=== PATIENT | male | born 1960 | race Two or more races ===

== ENCOUNTER 2024-09-13 08:33 | Outpatient (CLI) | payer BC ==
[2024-09-13 08:54] LABS: Hemoglobin 17.8 g/dL (13.5-17.5)
[2024-09-13 08:56] LABS: Hematocrit 50.8 % (41.0-53.0); Mean Corpuscular Hemoglobin 30.3 pg (28.0-32.0); Mean Corpuscular Volume 86.8 fL (80.0-100.0); Nucleated Red Blood Cells % 0.1 %
[2024-09-13 09:27] LABS: Alanine Aminotransferase 30 U/L (7-40); Albumin 4.4 g/dL (3.2-4.8); Alkaline Phosphatase 51 U/L (46-116); Anion Gap 8 (5-15); BUN/Creatinine Ratio 13.8 (10.0-20.0); Blood Urea Nitrogen 16 mg/dL (9-23); Calcium 9.6 mg/dL (8.7-10.4); Carbon Dioxide 25 mmol/L (20-31); Chloride 107 mmol/L (98-107); Glucose 87 mg/dL (74-106); Potassium 4.0 mmol/L (3.5-5.1); Sodium 140 mmol/L (136-145); Total Protein 6.9 g/dL (5.7-8.2); Triglycerides 59 mg/dL (< 150)
[2024-09-13 09:28] LABS: Bilirubin, Total 1.5 mg/dL (0.2-1.0); Cholesterol 143 mg/dL (< 200); HDL Cholesterol 39 mg/dL (40-59)
== END 2024-09-13 17:00 | disposition home or self-care (01) ==
LOC: LAB 08:33 → EDSEX 08:33 → LAB 17:00
PROVIDERS: ATTEND Nurse Practitioner Family
DX: I10 Essential (primary) hypertension (principal); R35.1 Nocturia; Z00.01 Encounter for general adult medical examination with abnormal findings
CPT/HCPCS: 36415; 80053; 80061; 84153; 84443; 85025